=== PATIENT | female | born 1955 | race Caucasian/White ===

== ENCOUNTER 2019-03-12 21:52 | Emergency (ER) | payer OTHER ==
[2019-03-12] MEDS ORDERED: Dexamethasone IV* 4 MG/ML 1 ML (4 MG) IV SLOW PU ONE (22:03)
[2019-03-12] MEDS ORDERED: EPINEPHrine,Rac 2.25% NEB.SOL* 0.5 ML ONE (22:04)
[2019-03-12] MEDS ORDERED: EPINEPHrine,Rac 2.25% NEB.SOL* 0.5 ML INH ONE (22:04)
[2019-03-12] MEDS ORDERED: diPHENhydraMINE IV* 50 MG/ML 1 ml VIAL (BENADRYL) IV ONE (22:10)
[2019-03-12] MEDS ORDERED: Famotidine IV* 10 MG/ML 2 ML (20 mg) IV SLOW PU ONE (22:11)
[2019-03-12] MEDS ORDERED: EPINEPHRINE 1 MG/ML 1 ML VIAL IM ONE (22:13)
--- NOTE | 2019-03-12 22:13 | UC ---
Respiratory Complaint HPI - HPI Summary HPI Summary: 63-year-old woman comes to clinic with a chief complaint of difficulty breathing. Patient has had some upper respiratory tract section symptoms for about a day. She went to sleep tonight and then woke up just prior to arrival with her airway closed often unable to breathe by sitting up and coughing she was able to open upper airway. She states her airway is still feels swollen. She's afraid that if she coughs again her airway will close off. No known history of allergic reaction. - History of Current Complaint Stated Complaint: COUGH SHORTNESS OF BREATH Time Seen by Provider: 03/12/19 21:54 - Allergies/Home Medications Allergies/Adverse Reactions: Allergies Allergy/AdvReac Type Severity Reaction Status Date / Time No Known Allergies Allergy Verified 03/12/19 21:59 PMH/Surg Hx/FS Hx/Imm Hx Previously Healthy: Yes - Surgical History Surgical History: None - Family History Known Family History: Positive: None - Social History Alcohol Use: Weekly Alcohol Amount: weekends Substance Use Type: None Smoking Status (MU): Never Smoked Tobacco Have You Smoked in the Last Year: Yes - Immunization History Most Recent Influenza Vaccination: 09/2015 Most Recent Tetanus Shot: unknown Hx Tetanus, Diphtheria Vaccination: No - not up to date Vaccination Up to Date: Yes Review of Systems All Other Systems Reviewed And Are Negative: Yes Constitutional: Positive: Negative Skin: Positive: Negative Eyes: Positive: Blurred Vision ENT: Positive: Sore Throat Respiratory: Positive: Shortness Of Breath - SEE HPI Cardiovascular: Positive: Negative Gastrointestinal: Positive: Negative Motor: Positive: Negative Neurovascular: Positive: Negative Musculoskeletal: Positive: Negative Psychological: Positive: Anxious Is Patient Immunocompromised?: No Physical Exam Triage Information Reviewed: Yes Appearance: Well-Nourished, Ill-Appearing Vital Signs Reviewed: Yes Eyes: Positive: Conjunctiva Clear ENT: Positive: Pharynx normal Neck: Positive: Supple Respiratory: Positive: Lungs clear, Respiratory distress - MILD Cardiovascular: Positive: Tachycardia Musculoskeletal: Positive: Strength Intact, ROM Intact Neurological Exam: Normal Neurological: Positive: Alert, Muscle Tone Normal Psychological: Positive: Age Appropriate Behavior Skin Exam: Normal Respiratory Course/Dx - Course Course Of Treatment: Patient's oxygen saturation is 100%. Patient feels that her throat is almost closed. Due to potential airway compromise we called 911 and the ambulance took the patient to the emergency department. Medications were ordered for allergic reaction however the patient stated she did not want the racemic epinephrine as she was afraid to cough and close off her airway. An IV was started just prior to the arrival of the ambulance crew. However the IV was painful and therefore no medications were given through the IV site. With the ambulance crew in attendance we did not attempt a second IV and they took over care of the patient. There was no further airway compromise in clinic and therefore IM epinephrine was not given. I called [facility] and spoke with Dr Fraga. - Differential Dx/Diagnosis Provider Diagnosis: Airway compromise Discharge - Sign-Out/Discharge Documenting (check all that apply): Patient Departure All imaging exams completed and their final reports reviewed: No Studies - Discharge Plan Condition: Stable Disposition: TRANS HIGHER LVL OF CARE FAC Referrals: Vanita Samuels MD [Primary Care Provider] - - Billing Disposition and Condition Condition: STABLE Disposition: Trans Higher Lvl of Care Fac
[2019-03-12 22:26] VITALS: BP 145/96
== END 2019-03-12 22:25 | disposition short-term general hospital (02) ==
LOC: UCCORT 21:52
DX: J98.8 Other specified respiratory disorders (principal)
CPT/HCPCS: 99213; A9270-GY; G0463; J1100; J1200

== ENCOUNTER 2020-02-03 22:50 | Emergency (ER) | payer OTHER ==
--- OUTSIDE RECORDS SUMMARY | 2020-02-03 23:01 | XMS REPORT | Continuity of Care Document ---
:1955 External Reference #:[id number] Author Name Vanita Samuels MD Address [address] [place] [address] Care Team Providers Name Role Phone Brandon Hilario - Cardiovascular Care Team Information Business Process Associate Disease Problems Description No Information Available Social History Type Date Description Comments Sex Unknown ETOH Use Rarely consumes alcohol Tobacco Use Start: Unknown Patient has never smoked Recreational Drug Use Denies Drug Use Smoking Status Reviewed: 11/07/19 Patient has never smoked Allergies, Adverse Reactions, Alerts Description No Known Drug Allergies Medications Active Medications SIG Qnty Indications Ordering Provider Date Aspirin Adult Low 1 by mouth every E78.2 Vanita Samuels, 04/27/2017 Strength day with food 81mg Tablets I65.23 Vitamin D 2 by mouth every day with E55.9 Unknown 1000Unit Tablets dinner M81.0 Algaecal Take 2 capsules daily Vit C Unknown 25mg Vit D3 800u Vit K2 50mcg Calcium 360mg Magnesium 175mg [place] 1.5mg Strontium 1 cap by mouth bid Unknown 680mg Capsules [place] Fish Oil 1 softgel by mouth daily Unknown 625mg Soft Gel History Medications Oseltamivir 1 by mouth 14caps B34.9 Vanita Samuels MD 11/07/2019 - Phosphate twice a day 11/08/2019 75mg Capsules Immunizations CPT Code Status Date Vaccine Reaction Lot # [id number] Given 09/26/2019 Flu Vaccine NOS AT WORK Q2039 Given 08/28/2018 Flu Vaccine NOS given at work Q2039 Given 08/28/2017 [place] [id number] Given 09/13/2016 Influenza Virus Vaccine,Quadrivalent,Split,Preserv Free, 0.5mL,[place] [id number] Given 10/20/2012 Tdap (Adacel) Ages 7 And Above Only 31908 Given 04/06/2005 Immunization Td 7 Yrs Or Older [id number] Refused 06/19/2019 Shingrix (Shingles) Zoster aware can get at pharmacy Vaccine HZV, Recombinant, Subunit, Adj [id number] Refused 04/27/2017 Zoster (Zostavax) Vital Signs Date Vital Result Comment 01/02/2020 8:29am Body Temperature 98.4 F tympanic Weight 128.00 lb Heart Rate 78 /min BP Systolic 128 mmHg BP Diastolic 74 mmHg Respiratory Rate 16 /min Height 59.5 inches 4'11.50" BMI (Body Mass Index) 25.4 kg/m2 11/07/2019 2:57pm Body Temperature 100.0 F Weight 130.00 lb Heart Rate 78 /min BP Systolic 130 mmHg BP Diastolic 80 mmHg Respiratory Rate 16 /min Height 59.5 inches 4'11.50" BMI (Body Mass Index) 25.8 kg/m2 Results Test Acquired Date Facility Test Result H/L Range Note Laboratory test 01/02/2020 [facility] Urine Culture <pending> finding Comprehensive Met 11/08/2019 [facility] Sodium 142 mmol/L 135-146 1, 2 Panel-[facility] Potassium 3.9 mmol/L 3.5-5.2 Chloride# 103 mmol/L 97-110 3 Carbon Dioxide 27 mmol/L 24-34 Calcium 10.3 mg/dL 8.5-10.5 4 Glucose 134 mg/dL High 70-105 BUN 13 mg/dL 6-26 Creatinine 0.9 mg/dL 0.5-1.4 Total Protein 6.4 g/dL 6.0-8.0 Albumin 4.7 g/dL 3.6-4.9 Globulin 1.7 g/dL Low 2.0-3.5 A/G Ratio 2.8 Ratio High 1.0-2.2 Total Bilirubin 0.8 mg/dL 0.1-1.3 Alkaline Phosphatase 60 U/L 24-140 Alt 21 U/L 3-42 Ast 19 U/L 8-42 Anion Gap 12 mmol/L 5-15 5 Female Egfr 68 >60 6 Male Egfr 90 >60 7 Lipid 11/08/2019 [facility] Cholesterol 182 mg/dL 50-199 Triglycerides 89 mg/dL 30-200 HDL 59 mg/dL 35-85 8 Chol/ HDL Ratio 3.1 ratio Low 3.7-5.6 VLDL 18 mg/dL 2-29 LDL (Calc) 105 mg/dL High 20-99 9 CBC with Auto Diff-[facility] 11/08/2019 [facility] WBC 8.9 K/uL 4.1-11.0 10 RBC 4.99 M/uL 4.00-5.40 11 Hemoglobin 14.1 gm/dL 12.0-16.0 12 Hematocrit 43.1 % 36.0-47.0 13 MCV 86.3 fL 80.0-95.0 14 MCH 28.3 pg 27.0-32.0 15 MCHC 32.8 g/dL 32.0-36.0 16 RDW 13.9 % 10.5-14.5 17 PLT Count 239 K/ul 150-400 18 MPV 10.2 FL 7.1-10.7 Neutrophil 63.0 % 35.0-75.0 19 Lymphocyte 24.4 % 16.0-52.0 20 Monocyte 7.4 % 0.0-8.0 21 Eosinophil 4.5 % 0.0-5.0 Basophil 0.7 % 0.0-4.0 Abs Neutrophils 5.6 K/uL 1.8-7.7 22 Abs Lymphocytes 2.2 K/uL 1.2-4.8 23 Abs Monocytes 0.7 K/uL 0.0-0.8 24 Abs Eosinophils 0.4 K/uL 0.0-0.5 25 Abs Basophils 0.1 K/uL 0.0-0.2 26 Influ A/B/RSV-[facility] 11/07/2019 [facility] Influenza A NEGATIVE Negative Influenza B NEG Neg RSV NEG Neg 1 todya letter 2 Updated reference range on new analyzer 3 Updated reference range on new analyzer 4 Updated reference range 03-28-2019 5 Updated Reference Range 6 Concerning GFR Guidelines for Americans: Normal function or mild renal disease, if clinically at risk: >/= 60 mL/min Moderately decreased: 30-59 Severely decreased: 15-29 Renal failure: <15 There is reduced accuracy above 60ml/min/1.73 m squared, but the numeric value may be clinically useful in the near 60 range 7 Concerning GFR Guidelines: Normal function or mild renal disease, if clinically at risk: >/= 60 mL/min Moderately decreased: 30-59 Severely decreased: 15-29 Renal failure: <15 There is reduced accuracy above 60ml/min/1.73 m squared, but the numeric value may be clinically useful in the near 60 range Glomerular Filtration Rate (GFR) is estimated based on the CKD-EPI equation, which assumes a steady state for creatinine as recommended by the National Kidney Disease Education Program in conjunction with the National Institutes of Health and the National Kidney Foundation. Clinical conditions in which it may be necessary to measure GFR by using clearance methods include extremes of age and body size, severe malnutrition or obesity, diseases of skeletal muscle, paraplegia or quadriplegia, vegetarian diet, rapidly changing kidney function, and calculation of the dose of potentially toxic drugs that are excreted by the kidneys. 8 Per NCEP ATP III Guidelines: Results lower than 40 mg/dL are suggestive of increased risk for coronary artery disease. Results > or = to 60 mg/dL are considered a negative risk factor. 9 Per NCEP ATP III Guidelines: Normal Population <130 Patients with medical conditions: CHD/DM Optimal: <100 Borderline high: 130-159 High: 160-189 Very high: >189 10 Updated Reference Range 09/2019 11 Updated Reference Range 09/2019 12 Updated Reference Range 09/2019 13 Updated Reference Range 09/2019 14 Updated Reference Range 09/2019 15 Updated Reference Range 09/2019 16 Updated Reference range 09/2019 17 Updated Reference range 09/2019 18 Updated Reference Range 09/2019 19 Updated Reference Range 09/2019 20 Updated Reference Range 09/2019 21 Updated Reference Range 09/2019 22 Updated Reference Range 09/2019 23 Updated Reference Range 09/2019 24 Updated Reference Range 09/2019 25 Updated Reference Range 09/2019 26 Updated Reference Range 09/2019 Procedures Date Code Description Status 09/08/2018 [id number] Mammogram Completed 06/29/2017 554425374 Bone Mineral Density Test Completed 01/15/2013 49173974 Colonoscopy Completed Medical Devices Description No Information Available Encounters Type Date Location Provider Dx Diagnosis Office Visit 11/07/2019 [facility] Vanita Samuels, M79.10 Myalgia, unspecified 2:30p MD site B34.9 Viral infection, unspecified Z01.411 Encntr for websphere portal developer exam (general) (routine) w abnormal findings E78.2 Mixed hyperlipidemia M81.0 Age-related osteoporosis w/o current pathological fracture I65.23 Occlusion and stenosis of bilateral carotid arteries R03.0 Elevated blood-pressure reading, w/o diagnosis of htn Z12.11 Encounter for screening for malignant neoplasm of colon Z12.31 Encntr screen mammogram for malignant neoplasm of breast Z13.31 Encounter for screening for depression Z13.89 Encounter for screening for other disorder Z68.25 Body mass index (BMI) 25.0-25.9, adult Assessments Date Code Description Provider 01/02/2020 R10.814 LEFT lower quadrant abdominal tenderness Vanita Samuels MD 01/02/2020 R10.813 RIGHT lower quadrant abdominal tenderness Vanita Samuels MD 01/02/2020 A09 Infectious gastroenteritis and colitis, Vanita Samuels MD unspecified 01/02/2020 Z23 Encounter for immunization Vanita Samuels MD 01/02/2020 Z68.25 Body mass index (BMI) 25.0-25.9, adult Vanita Samuels MD 11/08/2019 E78.2 Mixed hyperlipidemia Vanita Samuels MD 11/08/2019 E78.2 Mixed hyperlipidemia Schedule, Laboratory 11/08/2019 B34.9 Viral infection, unspecified Vanita Samuels MD 11/08/2019 B34.9 Viral infection, unspecified Schedule, Laboratory 11/08/2019 E78.2 Mixed hyperlipidemia [facility] 11/08/2019 B34.9 Viral infection, unspecified [facility] 11/07/2019 M79.10 Myalgia, unspecified site Vanita Samuels MD 11/07/2019 B34.9 Viral infection, unspecified Vanita Samuels MD 11/07/2019 Z01.411 Encounter for gynecological examination Vanita Samuels MD (general) (routine) with abnormal findings 11/07/2019 E78.2 Mixed hyperlipidemia Vanita Samuels MD 11/07/2019 M81.0 Age-related osteoporosis without current Vanita Samuels MD pathological fracture 11/07/2019 I65.23 Occlusion and stenosis of bilateral carotid Vanita Samuels MD arteries 11/07/2019 R03.0 Elevated blood-pressure reading, without Vanita Samuels MD diagnosis of hypertension 11/07/2019 Z12.11 Encounter for screening for malignant Vanita Samuels MD neoplasm of colon 11/07/2019 Z12.31 Encounter for screening mammogram for Vanita Samuels MD malignant neoplasm of breast 11/07/2019 Z13.31 Encounter for screening for depression Vanita Samuels MD 11/07/2019 Z13.89 Encounter for screening for other disorder Vanita Samuels MD 11/07/2019 Z68.25 Body mass index (BMI) 25.0-25.9, adult Vanita Samuels MD 11/07/2019 B34.9 Viral infection, unspecified [facility] Plan of Treatment Future Appointment(s):11/17/2020 9:00 am - Schedule, Laboratory at [facility]2019 9:30 am - Vanita Samuels MD at [facility]01/02/2020 - Vanita Samuels, MDR10.814 LEFT lower quadrant abdominal tendernessNew Labs:CBC with Auto Diff- [facility], Ordered: 01/02/20Comprehensive Met Panel-[facility], Ordered: 01/02/20Esr-[facility], Ordered: 01/02/20CRP (C-Reactive), Ordered: 01/02/20Comments:left and right lower quad abd pain with hyperactive bowel sounds and recent increased loose bm , already getting better, history and illness course suggests gastroenteritiscould also be: uti, check urinediverticulitis or appendicitis, but she is better and has no fever or peritoneal signs--check labs, hold on imaging pending course of illnessless likely kidney stone she will call if develops temp 100.5 + or starts feeling worse.Follow up:labs today ;next visit as planned ; offer nurse visit for [id number] in about 2-3 tkxefJ66.813 RIGHT lower quadrant abdominal tendernessNew Labs:CBC with Auto Diff-[facility], Ordered: Comprehensive Met Panel-[facility], Ordered: 01/02/20Esr-[facility], Ordered: CRP (C-Reactive), Ordered: 01/02/20Comments:as abov eA09 Infectious gastroenteritis and colitis, unspecifiedComments:Suspect gastroenteritishas had some frequent soft loose bm in the last few days, now a little betterrecommend clear liquids for 24-48 hours --gingerale, sports drink, etcDrink fluids with every BM, such as sports drink, 1/2 strength juice, gingerale, but avoid full strength juices and watch your body's reaction Then start soft food diet once stools slow and start to form. Eat bland raw/lightly cookedstarchy vegetables ( potatoes, carrots) and lean meats ( chicken, turkey, fish), only simple grains ( white bread and white rice and white spaghetti), small amounts. Avoidy stringy veg/fruits ( peaches, citrus, green beans, lettuces) until you are better. Discussed as the BRAT diet. Consider a probiotic pills 1 daily If not better in a few days come in for reevaluation. Keep track of what foods seem to worsen symptoms. Call for blood or black in stool, temp over 100.5, severe abd pain, lack of improvement as expected, dizziness, concerns for dehydration. Watch urination.Z23 Encounter for immunizationComments:recommend prevnar 13 to help reduce the risk for pneumonia, pneumovax 23 will be given in 1 year.Z68.25 Body mass index (BMI) 25.0-25.9, adultComments:Recommend healthy reduced calorie diet and regular exercise. Functional Status Description No Information Available Mental Status Description No Information Available Referrals Description No Information Available
--- NOTE | 2020-02-03 23:20 | ED ---
Abdominal Pain/Female - HPI Summary HPI Summary: Patient is a 64 y/o F presenting to [facility] with chief complaint of LLQ pain. She states that, a few weeks ago, she had developed some LLQ pain. Pain was mild and she went to her PCP for evaluation. PCP placed the patient on a clear liquid diet for a day, pain subsequently resolved. Around 1500 on 02/03/20, patient developed a more severe pain at her LLQ. Pain has been constant since onset and worsened at 1830. Patient came to ED for evaluation as a result. Pain is characterized as a throbbing sensation. She denies N/V/D, constipation, decreased appetite, and urinary Sx. She notes that sitting aggravates her pain. She states that she does not have Hx of diverticulitis. She had a screening colonoscopy seven years ago and polyp was noted and removed at the time. Patient denies past abdominal surgeries. Home medications and allergies are reviewed. Home Medications Medication Instructions Recorded Confirmed Type Aspirin EC TAB* [Ecotrin EC Low 81 mg PO DAILY 10/11/14 11/11/15 History Dose 81 MG*] Calcium Citrate/Vitamin D3 1 tab PO DAILY 10/11/14 11/11/15 History [Citracal Petites/Vitamin] Cholecalciferol [Vitamin D3 High 1,000 unit PO DAILY 10/11/14 11/11/15 History Potency] - History of Current Complaint Chief Complaint: EDAbdPain Stated Complaint: LEFT ABD PAIN Time Seen by Provider: 02/03/20 23:13 Hx Obtained From: Patient Onset/Duration: Lasting Hours, Still Present Timing: Constant Severity Initially: Moderate Severity Currently: Severe Pain Intensity: 8 Pain Scale Used: 0-10 Numeric Location: Discrete At: LLQ Character: Other: - throbbing Aggravating Factor(s): Other: - sitting Associated Signs and Symptoms: Negative: Constipation, Urinary Symptoms, Decreased Appetite, Nausea, Vomiting, Diarrhea Allergies/Adverse Reactions: Allergies Allergy/AdvReac Type Severity Reaction Status Date / Time No Known Allergies Allergy Verified 02/03/20 22:54 Home Medications: Home Medications Aspirin EC TAB* [Ecotrin EC Low Dose 81 MG*] 81 mg PO DAILY 10/11/14 [History Confirmed 11/11/15] Calcium Citrate/Vitamin D3 [Citracal Petites/Vitamin] 1 tab PO DAILY 10/11/14 [ History Confirmed 11/11/15] Cholecalciferol [Vitamin D3 High Potency] 1,000 unit PO DAILY 10/11/14 [History Confirmed 11/11/15] PMH/Surg Hx/FS Hx/Imm Hx Endocrine/Hematology History: Denies: Hx Diabetes Cardiovascular History: Reports: Hx Hypercholesterolemia Respiratory History: Denies: Hx Asthma GI History: Denies: Hx Diverticulosis Infectious Disease History: Yes Infectious Disease History: Reports: Hx Shingles Denies: Traveled Outside the [place] in Last 30 Days - Family History Known Family History: Negative: Diabetes - Social History Alcohol Use: Weekly Alcohol Amount: weekends Substance Use Type: Reports: None Smoking Status (MU): Never Smoked Tobacco Have You Smoked in the Last Year: Yes Review of Systems Gastrointestinal: Other - negative - constipation and decreased appetite Positive: Abdominal Pain. Negative: Vomiting, Diarrhea, Nausea Positive: no symptoms reported - no urinary Sx noted All Other Systems Reviewed And Are Negative: Yes Physical Exam - Summary Physical Exam Summary: Appearance: Well-appearing, Well-nourished, lying in bed comfortably Skin: Warm, dry, no obvious rash Eyes: sclera anicteric, no conjunctival pallor HENT: mucous membranes moist, pharynx appears normal Neck: Supple, nontender Respiratory: Clear to auscultation, no signs of respiratory distress Cardiovascular: Normal S1, S2. No murmurs. Normal distal pulses in tibial and radial bilaterally. Abdomen: Soft, LLQ tenderness, normal active bowel sounds present Musculoskeletal: Normal, Strength/ROM Intact Neurological: A&Ox3, awake and alert, mentation is normal, speech is fluent and appropriate Psychiatric: affect is normal, does not appear anxious or depressed Triage Information Reviewed: Yes Vital Signs On Initial Exam: Initial Vitals Temp Pulse Resp BP Pulse Ox 98.8 F 70 15 157/110 99 02/03/20 22:52 02/03/20 22:52 02/03/20 22:52 02/03/20 22:52 02/03/20 22:52 Vital Signs Reviewed: Yes Procedures - Sedation Patient Received Moderate/Deep Sedation with Procedure: No Diagnostics - Vital Signs Vital Signs Temp Pulse Resp BP Pulse Ox 02/03/20 22:52 98.8 F 70 15 157/110 99 - Laboratory Result Diagrams: 02/03/20 23:30 02/03/20 23:30 Lab Statement: Any lab studies that have been ordered have been reviewed, and results considered in the medical decision making process. - CT abd/pel ct CT Interpretation Completed By: Radiologist Summary of CT Findings: ABDOMEN/PELVIS CT IMPRESSION: No CT findings to correlate with patient's symptomatology. This report was reviewed by ED physician. Abdominal Pain Fem Course/Dx - Course Course Of Treatment: Patient is a 64 y/o F presenting to [facility] with chief complaint of LLQ pain. She states that, a few weeks ago, she had developed some LLQ pain. Pain was mild and she went to her PCP for evaluation. PCP placed the patient on a clear liquid diet for a day, pain subsequently resolved. Around 1500 on 02/03/20, patient developed a more severe pain at her LLQ. Pain has been constant since onset and worsened at 1830. Patient came to ED for evaluation as a result. Pain is characterized as a throbbing sensation. She denies N/V/D, constipation, decreased appetite, and urinary Sx. She notes that sitting aggravates her pain. She states that she does not have Hx of diverticulitis. She had a screening colonoscopy seven years ago and polyp was noted and removed at the time. Patient denies past abdominal surgeries. Physical exam showed LLQ tenderness. Bloodwork was obtained. Abnormal values include RBC 4.98, glucose 105, CRP 11.85. UA showed trace ketones, 2+ blood, 2+ RBC, and trace WBC. During ED course, patient received fluids and toradol 10 mg IV. ABDOMEN/PELVIS CT IMPRESSION: No CT findings to correlate with patient's symptomatology. Patient was discharged to home and will followup with PCP. - Diagnoses Provider Diagnoses: Acute abdominal pain, Hematuria Discharge ED - Sign-Out/Discharge Documenting (check all that apply): Patient Departure - discharge - Discharge Plan Condition: Good Disposition: HOME Patient Education Materials: Hematuria (ED), Acute Abdominal Pain (ED) Referrals: Vanita Samuels MD [Primary Care Provider] - Additional Instructions: The only abnormality we found on the tests we ran of note was the finding of blood in the urine. I'm not sure how to relate that to your symptoms, although it is possible you had a stone that you passed while waiting for the CT scan. In any event you should have a followup urinalysis and if that blood is persistent your doctor will likely refer you to a urologist for further evaluation. - Billing Disposition and Condition Condition: GOOD Disposition: Home - Attestation Statements Document Initiated by Felisha: Yes Documenting Scribe: FRITZ BLOUNT Provider For Whom Felisha is Documenting (Include Credential): BALDEV CARMEN MD Scribe Attestation: FRITZ Saini, scribed for BALDEV CARMEN MD on 02/08/20 at 0206. Scribe Documentation Reviewed: Yes Provider Attestation: The documentation as recorded by the FRITZ lee accurately reflects the service I personally performed and the decisions made by me, BALDEV CARMEN MD Status of Scribe Document: Viewed
[2020-02-03] MEDS ORDERED: Ketorolac INJ* 30 MG/ML 1 ML VIAL IV PUSH ONE (23:24)
[2020-02-03] MEDS ORDERED: NS 0.9% 1000 ML** 1,000 ML IV ONE (23:24)
[2020-02-03 23:38] LABS: ABS Eosinophils 0.2 10^3/ul (0-0.6); ABS Lymphocytes 1.8 10^3/ul (1.0-4.8); ABS Monocytes 0.8 10^3/ul (0-0.8); ABS Neutrophils 7.2 10^3/ul (1.5-7.7); Eosinophil % 2.3 %; Hematocrit 42 % (35-47); Hemoglobin 14.1 g/dL (12.0-16.0); Lymphocyte % 17.9 %; Mean Corpuscular HGB Conc 33 g/dL (31-36); Mean Corpuscular Hemoglobin 28 pg (27-31); Mean Corpuscular Volume 85 fL (80-97); Mean Platelet Volume 9.1 fL (7.4-10.4); Platelet Count 250 10^3/uL (150-450); Red Blood Count 4.98 10^6 /uL (3.70-4.87); Red Cell Distribution Width 14 % (10-15)
[2020-02-03 23:55] LABS: Albumin 4.3 g/dL (3.2-5.2); Albumin/Globulin Ratio 1.8 (1-3); BUN/Creatinine Ratio 17.3 (8-20); C Reactive Protein 11.85 mg/L (<8.01); Calcium 9.9 mg/dL (8.6-10.3); EGFR African American 85.9 (>60); Globulin 2.4 g/dL (2-4); Potassium 3.7 mmol/L (3.5-5.0); Total Bilirubin 0.5 mg/dL (0.2-1.0); Total Protein 6.7 g/dL (6.4-8.9)
[2020-02-04 00:37] LABS: Urine Appearance Clear; Urine Bilirubin Negative (Negative); Urine Blood 2+ (Negative); Urine Color Straw; Urine Glucose Negative (Negative); Urine Ketones Trace (Negative); Urine Nitrite Negative (Negative); Urine Protein Negative (Negative); Urine Specific Gravity 1.008 (1.010-1.030); Urine Urobilinogen Negative (Negative)
[2020-02-04 00:39] LABS: Urine Bacteria Absent (Absent); Urine Red Blood Cell 2+(6-10/hpf) (Absent); Urine White Blood Cell Trace(0-5/hpf) (Absent)
[2020-02-04] MEDS ORDERED: Iohexol 300* (CONTRAST) 10 ML SDV IV ONE (01:10)
[2020-02-04 02:28] VITALS: BP 159/91
== END 2020-02-04 02:15 | disposition home or self-care (01) ==
LOC: ED 22:50
DX: R10.32 Left lower quadrant pain (principal); R31.9 Hematuria, unspecified; Z88.6 Allergy status to analgesic agent
CPT/HCPCS: 36415; 74177; 80053; 81003; 81015; 83605; 83690; 85025; 86140; 87086; 96361; 96374; 99283; J1885; Q9967